=== PATIENT | male | born 1960 | race Caucasian/White ===

== ENCOUNTER 2022-02-10 11:45 | Emergency (ER) | payer BC, SELFPAY ==
[2022-02-10] MEDS ORDERED: Oxymetazoline HCl 0.05% (30 ML BOT) ONE (12:28)
== END 2022-02-10 12:31 | disposition home or self-care (01) ==
LOC: BURERS 11:45
DX: R04.0 Epistaxis (principal); I10 Essential (primary) hypertension; E11.9 Type 2 diabetes mellitus without complications; F17.210 Nicotine dependence, cigarettes, uncomplicated
CPT/HCPCS: 99283

== ENCOUNTER 2022-03-21 23:24 | Emergency (ER) | payer BC ==
[2022-03-21] MEDS ORDERED: Aspirin Chewable 81 MG TAB ONE (23:48)
[2022-03-21] MEDS ORDERED: Lorazepam 2 MG/ML VIAL ONE (23:53)
[2022-03-22 00:07] LABS: #Basophils 0.1 thou/uL (0.0-0.2); #Eosinphils 0.1 thou/uL (0.0-0.7); #Monocytes 0.5 thou/uL (0.11-0.59); #Neutrophils 12.8 thou/uL (1.40-6.50); %Basophils 0.8 % (0.0-1.0); %Eosinophils 0.6 % (0.0-10.0); %Lymphocytes 12.8 % (21.0-51.0); %Monocytes 3.4 % (0.0-10.0); %Neutrophils 82.5 % (42.0-75.0); Hemoglobin 15.1 g/dL (14.0-18.0); Mean Corpuscular HGB CONC 33.3 g/dL (32.0-36.0); Mean Corpuscular Volume 95.9 fl (78.0-98.0); Mean Platelet Volume 5.6 fL (7.4-10.4); Platelet Count 440 10x3/uL (130-400); RBC Distribution Width 11.7 % (11.5-14.5); Red Blood Cell (RBC) Count 4.73 mill/uL (4.70-6.10); White Blood Cell (WBC) Count 15.5 10x3/uL (4.8-10.8)
[2022-03-22] MEDS ORDERED: Morphine 4 MG/ML VIAL ONE (00:11)
[2022-03-22] MEDS ORDERED: Famotidine/PF 20 mg/2ml Vial ONE (00:15)
[2022-03-22 00:18] LABS: ALT (SGPT) 32 U/L (8-55); AST (SGOT) 25 U/L (5-34); Albumin 4.4 g/dL (3.4-4.8); Alkaline Phosphatase 70 U/L (40-110); Anion Gap 22 mmol/L (10-20); BUN (Urea Nitrogen) 21 mg/dL (8.4-25.7); Bilirubin, Total 0.6 mg/dL (0.2-1.2); Calc. Creatinine Clearance 0 mL/min (70-130); Calcium 9.3 mg/dL (7.8-10.44); Carbon Dioxide 22 mmol/L (23-31); Chloride 100 mmol/L (98-107); Estimated GFR 67; Globulin 2.7 g/dL (2.4-3.5); Glucose 139 mg/dL (80-115); Potassium 4.3 mmol/L (3.5-5.1); Protein, Total 7.1 g/dL (5.8-8.1); Sodium 140 mmol/L (136-145)
[2022-03-22 00:34] LABS: CKMB 4.6 ng/mL (0-6.6)
== END 2022-03-22 00:55 | disposition short-term general hospital (02) ==
LOC: BURERS 23:24
DX: J90 Pleural effusion, not elsewhere classified (principal); R77.8 Other specified abnormalities of plasma proteins; I11.0 Hypertensive heart disease with heart failure; I50.9 Heart failure, unspecified; I25.10 Atherosclerotic heart disease of native coronary artery without angina pectoris; E78.5 Hyperlipidemia, unspecified; F17.210 Nicotine dependence, cigarettes, uncomplicated; Z79.899 Other long term (current) drug therapy
CPT/HCPCS: 71045; 80053; 82553; 83880; 84484; 85025; 93005; 94760; 96365; 96375; J2060; J2270; S0028